=== PATIENT | female | born 1935 | race Hispanic/Latino ===

== ENCOUNTER 2016-10-05 23:29 | Emergency (ER) | payer MEDICARE ==
[~2016-10-05] VITALS: Ht 160 cm; Wt 68.1 kg
[~2016-10-05 23:29] MED LIST: AMOX/K CLAV875 M1 PO; BACTRIM DS1 TAB PO; FLOXIN OTIC0.3 % OT; HYDROCO/APAP1 T13 PO; LORTAB 10-325 M1 TAB PO; METFORMIN500 MG PO; POTASSIUM CHLO20 ME1 PO
[2016-10-05] MEDS ORDERED: ZESTRIL5 M1 PO (23:54)
[2016-10-06 00:18] LABS: HEMATOCRIT 39.1 % (37.0-47.0); HEMOGLOBIN 12.3 g/dl (12.0-16.0); IMMATURE GRANULOCYTES 0.8 % (0.0-1.0); MEAN CELL VOLUME 85.7 fL CALC (80.0-100.0); MEAN CORPUSCULAR HGB CONC 31.5 g/L CALC (32.0-36.0); NEUT# 2.97 thou/uL (2.00-7.15); RED BLOOD COUNT 4.56 mill/uL (4.20-5.60); RED CELL DISTRI WIDTH 14.3 % (11.5-15.5)
[2016-10-06 00:33] LABS: ALBUMIN 4.3 g/dL (3.2-5.0); ALKALINE PHOSPHATASE 88 u/l (38-126); ANION GAP 16 (6-22 (CALC)); BUN 16 mg/dL (8-23); BUN/CREATININE RATIO 16 (12-20 (CALC)); CALCIUM 7.9 mg/dL (8.4-10.2); CARBON DIOXIDE 30 mmol/l (22-30); CHLORIDE 100 mmol/l (95-108); GFR 53 ML/MIN (>=60 (CALC)); GFR FOR AFR.AMER. > 60 ML/MIN (>=60 (CALC)); GLUCOSE 147 mg/dL (82-115); SGOT/AST 15 u/l (9-36); SGPT/ALT 19 u/l (11-66); SODIUM 142 mmol/l (137-146); TOTAL PROTEIN 8.4 g/dL (6.3-8.2)
[2016-10-06] MEDS ORDERED: AMOXICILLIN/PO500 MG PO (01:24)
[2016-10-06] MEDS ORDERED: ZESTRIL5 M1 PO (01:24)
[2016-10-06 01:42] VITALS: BP 146/63
== END 2016-10-06 01:40 | disposition home or self-care (01) ==
LOC: ED 23:29
PROVIDERS: Emergency Medicine
DX: I10 Essential (primary) hypertension (principal); H66.91 Otitis media, unspecified, right ear; E11.9 Type 2 diabetes mellitus without complications; K21.9 Gastro-esophageal reflux disease without esophagitis; Z91.14 Patient's other noncompliance with medication regimen

== ENCOUNTER 2016-10-23 16:31 | Emergency (ER) | payer MEDICARE ==
[~2016-10-23] VITALS: Ht 160 cm; Wt 77.0 kg
[~2016-10-23 16:31] MED LIST changes: +AMOXICILLIN/PO500 MG PO; +ZESTRIL5 M1 PO
[2016-10-23] MEDS ORDERED: LISINOPRIL10 MG PO (17:02)
[2016-10-23 17:34] LABS: HEMATOCRIT 42.8 % (37.0-47.0); HEMOGLOBIN 13.6 g/dl (12.0-16.0); IMMATURE GRANULOCYTES 0.9 % (0.0-1.0); MEAN CELL VOLUME 86.5 fL CALC (80.0-100.0); MEAN CORPUSCULAR HGB 27.5 pG CALC (26.0-32.0); MEAN CORPUSCULAR HGB CONC 31.8 g/L CALC (32.0-36.0); NEUT# 3.64 thou/uL (2.00-7.15); RED BLOOD COUNT 4.95 mill/uL (4.20-5.60); RED CELL DISTRI WIDTH 14.3 % (11.5-15.5)
[2016-10-23 17:58] LABS: ALBUMIN 4.5 g/dL (3.2-5.0); BILIRUBIN, TOTAL 1.1 mg/dL (0.0-1.4); CALCIUM 8.6 mg/dL (8.4-10.2); CREATININE 1.1 mg/dL (0.5-1.0); POTASSIUM 4.1 mmol/l (3.5-5.1)
[2016-10-23] MEDS ORDERED: AMLODIPINE10 MG PO (18:12)
[2016-10-23 18:25] VITALS: BP 174/94
== END 2016-10-23 18:50 | disposition home or self-care (01) ==
LOC: ED 16:31
PROVIDERS: Emergency Medicine
DX: I10 Essential (primary) hypertension (principal)

== ENCOUNTER 2016-11-28 16:19 | Emergency (ER) | payer MEDICARE ==
[~2016-11-28 16:19] MED LIST changes: +AMLODIPINE10 MG PO; +LISINOPRIL10 MG PO
== END 2016-11-28 16:35 | disposition left against medical advice (07) ==
LOC: ED 16:19 → LWOBS 16:35
DX: Z91.19 Patient's noncompliance with other medical treatment and regimen (principal)

== ENCOUNTER 2016-12-30 00:14 | Emergency (ER) | payer MEDICARE ==
[~2016-12-30] VITALS: Ht 160 cm; Wt 72.7 kg
[2016-12-30 01:05] VITALS: BP 147/77
== END 2016-12-30 01:04 | disposition left against medical advice (07) ==
LOC: ED 00:14
DX: I10 Essential (primary) hypertension (principal); R07.9 Chest pain, unspecified; E11.9 Type 2 diabetes mellitus without complications; K21.9 Gastro-esophageal reflux disease without esophagitis; H40.9 Unspecified glaucoma; H54.0 Blindness, both eyes; Z79.84 Long term (current) use of oral hypoglycemic drugs; Z91.19 Patient's noncompliance with other medical treatment and regimen

== ENCOUNTER 2017-02-15 18:08 | Emergency (ER) | payer MEDICARE ==
[~2017-02-15] VITALS: Ht 160 cm; Wt 80.0 kg
[2017-02-15 18:50] LABS: HEMATOCRIT 39.8 % (37.0-47.0); HEMOGLOBIN 12.4 g/dl (12.0-16.0); IMMATURE GRANULOCYTES 0.9 % (0.0-1.0); MEAN CELL VOLUME 85.8 fL CALC (80.0-100.0); MEAN CORPUSCULAR HGB 26.7 pG CALC (26.0-32.0); MEAN CORPUSCULAR HGB CONC 31.2 g/L CALC (32.0-36.0); NEUT# 2.78 thou/uL (2.00-7.15); RED BLOOD COUNT 4.64 mill/uL (4.20-5.60); RED CELL DISTRI WIDTH 14.4 % (11.5-15.5)
[2017-02-15 19:02] LABS: CALCIUM 7.9 mg/dL (8.4-10.2); CREATININE 1.1 mg/dL (0.5-1.0)
[2017-02-15 19:51] LABS: ALBUMIN 4.4 g/dL (3.2-5.0); TOTAL PROTEIN 8.6 g/dL (6.3-8.2)
[2017-02-15 20:12] LABS: MYOGLOBIN 35 ng/mL (0 - 62)
[2017-02-15 20:20] LABS: URINE BILIRUBIN - DIPSTICK NEGATIVE (NEGATIVE); URINE BLOOD DIPSTICK NEGATIVE (NEGATIVE); URINE CLARITY CLEAR; URINE COLOR YELLOW; URINE GLUCOSE - DIPSTICK NEGATIVE (NEGATIVE); URINE KETONE NEGATIVE (NEGATIVE); URINE LEUK ESTERASE NEGATIVE (NEGATIVE); URINE NITRITE - DIPSTICK NEGATIVE (Negative); URINE PROTEIN - DIPSTICK 100 mg/dL (NEG-TRACE)
[2017-02-15 20:35] LABS: URINE WBC 0-2 WBC/hpf (0-5)
[2017-02-15 20:36] LABS: URINE SQUAMOUS EPITHELIAL CELL FEW EPI/hpf (0-FEW)
[2017-02-15] MEDS ORDERED: METFORMIN500 M1 PO (21:21)
[2017-02-15] MEDS ORDERED: AMLODIPINE BESY10 MG PO (21:21)
[2017-02-15] MEDS ORDERED: ATIVAN0.5 MG PO (21:22)
[2017-02-15 21:30] VITALS: BP 159/81
== END 2017-02-15 21:30 | disposition home or self-care (01) ==
LOC: ED 18:08
PROVIDERS: Emergency Medicine; Family Medicine
DX: I10 Essential (primary) hypertension (principal); F41.9 Anxiety disorder, unspecified; F32.9 Major depressive disorder, single episode, unspecified; E11.9 Type 2 diabetes mellitus without complications; K21.9 Gastro-esophageal reflux disease without esophagitis; H54.0 Blindness, both eyes; R42 Dizziness and giddiness
CPT/HCPCS: J2060

== ENCOUNTER 2017-03-13 13:25 | Emergency (ER) | payer MEDICARE ==
[~2017-03-13] VITALS: Ht 160 cm; Wt 73.0 kg
[~2017-03-13 13:25] MED LIST changes: +AMLODIPINE BESY10 MG PO; +ATIVAN0.5 MG PO; +METFORMIN500 M1 PO
[2017-03-13] MEDS ORDERED: TOBRAMYCIN0.3 % OU (13:53)
[2017-03-13] MEDS ORDERED: PRED FORTE1 % OU (13:55)
[2017-03-13] MEDS ORDERED: BENADRYL25 M1 PO (13:59)
[2017-03-13 14:15] VITALS: BP 151/73
== END 2017-03-13 14:15 | disposition home or self-care (01) ==
LOC: ED 13:25
DX: H10.9 Unspecified conjunctivitis (principal); H54.8 Legal blindness, as defined in USA; E11.9 Type 2 diabetes mellitus without complications; K21.9 Gastro-esophageal reflux disease without esophagitis; I10 Essential (primary) hypertension

== ENCOUNTER 2017-05-05 20:08 | Emergency (ER) | payer MEDICARE ==
[~2017-05-05] VITALS: Ht 160 cm; Wt 68.1 kg
[~2017-05-05 20:08] MED LIST changes: +BENADRYL25 M1 PO; +PRED FORTE1 % OU; +TOBRAMYCIN0.3 % OU
[2017-05-05 20:45] VITALS: BP 118/87
[2017-05-05] MEDS ORDERED: KEFLEX500 M1 PO (20:47)
== END 2017-05-05 20:57 | disposition home or self-care (01) ==
LOC: ED 20:08
DX: S00.86XA Insect bite (nonvenomous) of other part of head, initial encounter (principal); E11.9 Type 2 diabetes mellitus without complications; I10 Essential (primary) hypertension; K21.9 Gastro-esophageal reflux disease without esophagitis; H54.7 Unspecified visual loss; H40.9 Unspecified glaucoma; W57.XXXA Bitten or stung by nonvenomous insect and other nonvenomous arthropods, initial encounter

== ENCOUNTER 2017-06-28 09:47 | Emergency (ER) | payer MEDICARE ==
[~2017-06-28] VITALS: Ht 160 cm; Wt 63.0 kg
[~2017-06-28 09:47] MED LIST changes: +KEFLEX500 M1 PO
[2017-06-28 10:47] LABS: HEMATOCRIT 33.9 % (37.0-47.0); HEMOGLOBIN 10.5 g/dl (12.0-16.0); IMMATURE GRANULOCYTES 1.2 % (0.0-1.0); MEAN CELL VOLUME 83.7 fL CALC (80.0-100.0); MEAN CORPUSCULAR HGB 25.9 pG CALC (26.0-32.0); NEUT# 5.06 thou/uL (2.00-7.15); RED BLOOD COUNT 4.05 mill/uL (4.20-5.60); RED CELL DISTRI WIDTH 13.6 % (11.5-15.5)
[2017-06-28 11:06] LABS: ALBUMIN 3.8 g/dL (3.2-5.0); BILIRUBIN, TOTAL 0.9 mg/dL (0.0-1.4); CALCIUM 7.7 mg/dL (8.4-10.2); CREATININE 1.2 mg/dL (0.5-1.0); POTASSIUM 3.9 mmol/l (3.5-5.1); TOTAL PROTEIN 7.4 g/dL (6.3-8.2)
[2017-06-28 11:17] LABS: URINE BILIRUBIN - DIPSTICK NEGATIVE (NEGATIVE); URINE BLOOD DIPSTICK TRACE-INTACT (NEGATIVE); URINE COLOR YELLOW; URINE GLUCOSE - DIPSTICK >=1000 mg/dL (NEGATIVE); URINE KETONE NEGATIVE (NEGATIVE); URINE LEUK ESTERASE NEGATIVE (NEGATIVE); URINE NITRITE - DIPSTICK NEGATIVE (Negative); URINE PH 5.5 (4.5-8.0); URINE PROTEIN - DIPSTICK 30 mg/dL (NEG-TRACE); URINE UROBILINOGEN - DIPSTICK 0.2 E.U./dL (0.2)
[2017-06-28 11:20] LABS: URINE CLARITY CLEAR
[2017-06-28 11:21] LABS: URINE MUCUS FEW hpf (NONE-FEW); URINE SQUAMOUS EPITHELIAL CELL FEW EPI/hpf (0-FEW)
[2017-06-28] MEDS ORDERED: METFORMIN500 M1 PO (12:04)
[2017-06-28] MEDS ORDERED: AMLODIPINE BESY10 MG PO (12:04)
[2017-06-28 12:28] VITALS: BP 106/53
== END 2017-06-28 12:39 | disposition home or self-care (01) ==
LOC: ED 09:47
PROVIDERS: Emergency Medicine
DX: E11.65 Type 2 diabetes mellitus with hyperglycemia (principal); I10 Essential (primary) hypertension; Z91.14 Patient's other noncompliance with medication regimen

== ENCOUNTER 2017-07-21 16:02 | Observation (INO) | payer MEDICARE ==
[~2017-07-21] VITALS: Ht 160 cm; Wt 90.0 kg
--- NOTE | 2017-07-21 16:18 | NUR ---
PT TAKEN TO ER ROOM 8 IMMED BY WC. CABRERA @ BEDSIDE. PT ON CARDIAC/O2/BP MONITOR. CHANGED INTO GOWN.
--- NOTE | 2017-07-21 16:30 | NUR ---
IV INITIATED, LABS COLLECTED AND EKG COMPLETED. PT REPORTS EPIGASTRIC PAIN STARING THIS AM, CHEST IS TENDER TO THE TOUCH AND LS DIMINISHED BUT CLEAR. SON AT BEDSIDE AND IS AWARE OF PLAN OF CARE AND WAIT TIME.
--- NOTE | 2017-07-21 16:45 | NUR ---
UNABLE TO RECONCILE MEDICATIONS, SON WILL BRING MEDICATIONS WHEN HE COMES BACK.
--- NOTE | 2017-07-21 16:55 | NUR ---
PT MEDICATED WITH 15 MG OF TORADOL FOR 8/10 CP.
[2017-07-21 17:14] LABS: HEMATOCRIT 33.3 % (37.0-47.0); IMMATURE GRANULOCYTES 3.2 % (0.0-1.0); MEAN CELL VOLUME 84.5 fL CALC (80.0-100.0); MEAN CORPUSCULAR HGB 25.4 pG CALC (26.0-32.0); NEUT# 15.34 thou/uL (2.00-7.15); RED BLOOD COUNT 3.94 mill/uL (4.20-5.60); RED CELL DISTRI WIDTH 13.7 % (11.5-15.5)
--- NOTE | 2017-07-21 17:15 | NUR ---
SON BACK IN ROOM AND INFORMED US THAT HIS MOTHER FELL THIS AM IN THE BATHROOM.
[2017-07-21 17:28] LABS: ALBUMIN 4.4 g/dL (3.2-5.0); BILIRUBIN, TOTAL 0.6 mg/dL (0.0-1.4); CALCIUM 8.6 mg/dL (8.4-10.2); CREATININE 1.5 mg/dL (0.5-1.0); POTASSIUM 4.2 mmol/l (3.5-5.1); TOTAL PROTEIN 8.2 g/dL (6.3-8.2)
--- NOTE | 2017-07-21 17:30 | NUR ---
PT REPORTS SHE IS CURRENTLY PAIN FREE AND IS RESTING COMFORTABLY IN STRETCHER. WILL CONTINUE TO MONITOR.
--- NOTE | 2017-07-21 17:55 | NUR ---
STRAIGHT CATH COMPLETED ADND URINE SAMPLE COLLECTED. PT REFUSES TO OPEN EYES WHEN ASKED. PT DENIES ANY PAIN AT THIS TIME. AND SON AT BEDSIDE, WILL CONTINUE TO MONITOR.
[2017-07-21 18:25] LABS: URINE BILIRUBIN - DIPSTICK NEGATIVE (NEGATIVE); URINE BLOOD DIPSTICK NEGATIVE (NEGATIVE); URINE COLOR YELLOW; URINE GLUCOSE - DIPSTICK NEGATIVE (NEGATIVE); URINE KETONE TRACE mg/dL (NEGATIVE); URINE LEUK ESTERASE NEGATIVE (Negative); URINE NITRITE - DIPSTICK NEGATIVE (Negative); URINE PROTEIN - DIPSTICK 100 mg/dL (NEG-TRACE); URINE SPECIFIC GRAVITY 1.025; URINE UROBILINOGEN - DIPSTICK 0.2 E.U./dL (0.2)
[2017-07-21 18:26] LABS: URINE CLARITY HAZY
[2017-07-21 18:32] LABS: URINE RBC 0-2 RBC/hpf (0-5); URINE SQUAMOUS EPITHELIAL CELL FEW EPI/hpf (0-FEW); URINE WBC 0-2 WBC/hpf (0-5)
[2017-07-21 18:33] LABS: URINE AMORPH SEDIMENT MANY hpf (NONE-FEW)
--- NOTE | 2017-07-21 18:33 | NUR ---
BEDPAN REMOVED FROM UNDER PT. PT ABLE TO LIFT HIPS TO ASSISTED. RAYMON UNDERNEATH PATIENT IS DRY. @BEDSIDE. PT DENIES PAIN SINCE MEDICATED. PT STILL REFUSES TO OPEN EYES. WARM BLANKET GIVEN TO PT. NO OTHER NEEDS/CONCERNS AT THIS TIME.
--- NOTE | 2017-07-21 18:56 | NUR ---
REPORT CALLED TO GUILLE VASQUEZ.
--- NOTE | 2017-07-21 18:57 | NUR ---
PT ROOM BEING CLEAED AT THIS TIME, NURSE WILL CALL BACK WHEN READY.
--- NOTE | 2017-07-21 19:24 | NUR ---
WENT IN TO CHECK ON PT AND SON STATES PT WANTS TO GO HOME SINCE SHE FEELS FINE AND TEST WERE OK. EXPLAINED TO PT AND FAMILY THAT PT CAME IN AFTER FALLING WITH CHEST PAIN AND WE WANT TO KEEP PT TO OBSERVE AND DO FOLLOW UP TEST. DR CAN NOT STATE THAT PT IS FINE. PT'S SON RELAYED ALL INFORMATION TO MOM AND PT STATES SHE STILL WANTS TO LEAVE. WENT OVER POSSIBLES OF LEAVING AMA ULTIMATELY . PT AND FAMILY VERBALIZED UNDERSTANDING AND AMA SIGNED BY SON SINCE PT BLIND.
[2017-07-21 19:40] VITALS: BP 159/64
--- NOTE | 2017-07-21 19:40 | NUR ---
IV REMOVED. PT DRESSED AND STILL INSIST ON LEAVING. GAVE INFORMATION ON CHEST PAIN AND STRESSED TO RETURN OR CALL 911 FOR ANY CHEST PAIN OR SOB, Patient decides to leave AMA. Multiple attempts made to ecourage patient to remain here for continued treatment. Explained to patient all risks of leaving against medical advice including . Pt verbalized understanding of all risks. Pt also encouraged to return to [facility] at any time, especially if symptoms continue or become worse. Pt verbalized understanding.
== END 2017-07-21 19:40 | disposition left against medical advice (07) ==
LOC: ED 16:02 → ED-I 18:05 → ED 18:16 → MS2 18:17
PROVIDERS: Emergency Medicine; ADMIT Internal Medicine; ATTEND Internal Medicine
DX: R07.9 Chest pain, unspecified (principal); R06.02 Shortness of breath; E11.9 Type 2 diabetes mellitus without complications; I10 Essential (primary) hypertension

== ENCOUNTER 2017-08-18 17:13 | Emergency (ER) | payer MEDICARE ==
[~2017-08-18] VITALS: Ht 160 cm; Wt 68.1 kg
[2017-08-18 20:15] VITALS: BP 129/74
== END 2017-08-18 20:15 | disposition home or self-care (01) ==
LOC: ED 17:13
DX: H40.20X0 Unspecified primary angle-closure glaucoma, stage unspecified (principal); H57.11 Ocular pain, right eye

== ENCOUNTER 2017-09-01 14:27 | Emergency (ER) | payer MEDICARE ==
[~2017-09-01] VITALS: Ht 160 cm; Wt 72.7 kg
[2017-09-01 16:52] LABS: BUN 12 mg/dL (8-23); BUN/CREATININE RATIO 12 (12-20 (CALC)); CARBON DIOXIDE 28 mmol/l (22-30); CHLORIDE 97 mmol/l (95-108); GFR 53 ML/MIN (>=60 (CALC)); GFR FOR AFR.AMER. > 60 ML/MIN (>=60 (CALC)); SODIUM 139 mmol/l (137-146)
[2017-09-01 17:02] LABS: ANION GAP 17 (6-22 (CALC)); POTASSIUM 3.1 mmol/l (3.5-5.1)
[2017-09-01 17:24] LABS: HEMATOCRIT 34.1 % (37.0-47.0); HEMOGLOBIN 9.9 g/dl (12.0-16.0); MEAN CORPUSCULAR HGB 23.2 pG CALC (26.0-32.0); NEUT# 7.43 thou/uL (2.00-7.15); RED BLOOD COUNT 4.26 mill/uL (4.20-5.60); RED CELL DISTRI WIDTH 14.4 % (11.5-15.5)
[2017-09-01] MEDS ORDERED: BETIMOL0.51 OS (18:13)
[2017-09-01 18:39] VITALS: BP 170/84
== END 2017-09-01 18:15 | disposition left against medical advice (07) ==
LOC: ED 14:27
PROVIDERS: Family Medicine
DX: H40.052 Ocular hypertension, left eye (principal); R07.9 Chest pain, unspecified; H40.9 Unspecified glaucoma; M25.512 Pain in left shoulder; E11.9 Type 2 diabetes mellitus without complications; I10 Essential (primary) hypertension; H54.8 Legal blindness, as defined in USA; Z91.19 Patient's noncompliance with other medical treatment and regimen

== ENCOUNTER 2017-11-02 14:36 | Emergency (ER) | payer MEDICARE ==
[~2017-11-02] VITALS: Ht 160 cm; Wt 68.0 kg
[~2017-11-02 14:36] MED LIST changes: +BETIMOL0.51 OS
[2017-11-02 15:14] LABS: HEMATOCRIT 31.8 % (37.0-47.0); HEMOGLOBIN 9.6 g/dl (12.0-16.0); IMMATURE GRANULOCYTES 1.2 % (0.0-1.0); MEAN CORPUSCULAR HGB 22.5 pG CALC (26.0-32.0); MEAN CORPUSCULAR HGB CONC 30.2 g/L CALC (32.0-36.0); NEUT# 4.84 thou/uL (2.00-7.15); RED BLOOD COUNT 4.27 mill/uL (4.20-5.60); RED CELL DISTRI WIDTH 17.8 % (11.5-15.5)
[2017-11-02] MEDS ORDERED: GLIPIZIDE5 MG PO (15:21)
[2017-11-02] MEDS ORDERED: PANTOPRAZOLE SO40 MG PO (15:22)
[2017-11-02] MEDS ORDERED: TAMSULOSIN HCL0.4 MG PO (15:22)
[2017-11-02] MEDS ORDERED: SMZ-TMP DS1 TAB PO (15:23)
[2017-11-02 15:29] LABS: MEAN CELL VOLUME 74.5 fL CALC (80.0-100.0)
[2017-11-02 15:38] LABS: ALBUMIN 3.9 g/dL (3.2-5.0); BILIRUBIN, TOTAL 0.8 mg/dL (0.0-1.4); CREATININE 1.4 mg/dL (0.5-1.0); POTASSIUM 3.6 mmol/l (3.5-5.1); TOTAL PROTEIN 8.6 g/dL (6.3-8.2)
[2017-11-02] MEDS ORDERED: LORTAB 1010 MG PO (15:58)
[2017-11-02 16:25] VITALS: BP 129/65
== END 2017-11-02 16:25 | disposition left against medical advice (07) ==
LOC: ED 14:36
PROVIDERS: Emergency Medicine
DX: R07.9 Chest pain, unspecified (principal); R53.1 Weakness; H57.12 Ocular pain, left eye; I10 Essential (primary) hypertension; E11.9 Type 2 diabetes mellitus without complications; H54.7 Unspecified visual loss; H40.9 Unspecified glaucoma; Z91.19 Patient's noncompliance with other medical treatment and regimen

== ENCOUNTER 2017-11-04 17:34 | Emergency (ER) | payer MEDICARE ==
[~2017-11-04] VITALS: Ht 160 cm; Wt 65.9 kg
[~2017-11-04 17:34] MED LIST changes: +GLIPIZIDE5 MG PO; +LORTAB 1010 MG PO; +PANTOPRAZOLE SO40 MG PO; +SMZ-TMP DS1 TAB PO; +TAMSULOSIN HCL0.4 MG PO
[2017-11-04 18:11] LABS: HEMATOCRIT 27.7 % (37.0-47.0); HEMOGLOBIN 8.4 g/dl (12.0-16.0); IMMATURE GRANULOCYTES 1.6 % (0.0-1.0); MEAN CELL VOLUME 73.7 fL CALC (80.0-100.0); MEAN CORPUSCULAR HGB 22.3 pG CALC (26.0-32.0); MEAN CORPUSCULAR HGB CONC 30.3 g/L CALC (32.0-36.0); NEUT# 10.59 thou/uL (2.00-7.15); RED BLOOD COUNT 3.76 mill/uL (4.20-5.60); RED CELL DISTRI WIDTH 17.6 % (11.5-15.5)
[2017-11-04 18:26] LABS: ALBUMIN 3.2 g/dL (3.2-5.0); BILIRUBIN, TOTAL 0.4 mg/dL (0.0-1.4); CREATININE 1.7 mg/dL (0.5-1.0); TOTAL PROTEIN 7.2 g/dL (6.3-8.2)
[2017-11-04 18:30] LABS: POTASSIUM 2.7 mmol/l (3.5-5.1)
[2017-11-04] MEDS ORDERED: METFORMIN500 MG PO (19:35)
[2017-11-04 21:15] LABS: CREATININE 1.7 mg/dL (0.5-1.0)
[2017-11-04 21:16] LABS: POTASSIUM 3.8 mmol/l (3.5-5.1)
[2017-11-04 21:40] VITALS: BP 129/72
== END 2017-11-04 21:45 | disposition left against medical advice (07) ==
LOC: ED 17:34
PROVIDERS: Emergency Medicine
DX: E11.649 Type 2 diabetes mellitus with hypoglycemia without coma (principal); E87.6 Hypokalemia; I10 Essential (primary) hypertension; H54.7 Unspecified visual loss; H40.9 Unspecified glaucoma; Z91.81 History of falling; Z91.19 Patient's noncompliance with other medical treatment and regimen